=== PATIENT | female | born 1990 | race Caucasian/White ===

== ENCOUNTER 2018-08-06 09:34 | Emergency (ER) | payer SELFPAY ==
[2016-03-17 00:09] VITALS: BP 148/89
== END 2018-08-06 11:54 | disposition left against medical advice (07) ==
LOC: ER 09:34
DX: L98.9 Disorder of the skin and subcutaneous tissue, unspecified (principal); Z53.21 Procedure and treatment not carried out due to patient leaving prior to being seen by health care provider